=== PATIENT | male | born 2000 | race Caucasian/White ===

== ENCOUNTER 2021-06-12 14:32 | Emergency (ER) | payer SELFPAY ==
[~2021-06-12 14:32] MED LIST: AZITHROMYCIN250 MG PO; IBUPROFEN800 MG PO
== END 2021-06-12 15:51 | disposition left against medical advice (07) ==
LOC: FER 14:32
DX: R10.13 Epigastric pain (principal); F17.200 Nicotine dependence, unspecified, uncomplicated; Z53.29 Procedure and treatment not carried out because of patient's decision for other reasons
CPT/HCPCS: 99283

== ENCOUNTER 2021-06-20 16:10 | Emergency (ER) | payer SELFPAY ==
[2021-06-20 17:58] LABS: CORONAVIRUS 2019 SARS-COV-2 NEGATIVE (NEGATIVE); INFLUENZA A NAA POSITIVE (NEGATIVE)
[2021-06-20] MEDS ORDERED: ONDANSETRON ODT4 MG PO (18:27)
== END 2021-06-20 18:48 | disposition home or self-care (01) ==
LOC: FER 16:10
PROVIDERS: Physician Assistant
DX: J10.1 Influenza due to other identified influenza virus with other respiratory manifestations (principal); F17.210 Nicotine dependence, cigarettes, uncomplicated; Z20.822 Contact with and (suspected) exposure to COVID-19
CPT/HCPCS: 71045; Q0162; U0002